=== PATIENT | male | born 1970 | race Caucasian/White ===

== ENCOUNTER 2020-04-28 05:39 | Day surgery (SDC) | payer OTHER, SELFPAY ==
[2020-04-24 11:03] VITALS: BMI 26.9
[2020-04-28 06:05] VITALS: BP 116/78; PULSE 46; RESP 18; TEMP 36.2; O2SAT 99
[2020-04-28] MEDS: sodium chloride 0.9% 1,000 ML 30 ML IV (06:12)
--- NOTE | 2020-04-28 06:46 | P.ANESASSM_ITS ---
Pre-Anesthetic Assessment Pre-Anesthetic Assessment: Height/Weight: Height 1.68 m Weight 75.75 kg Temp Pulse Resp BP Pulse Ox 97.2 F L 46 L 18 116/78 99 04/28/20 06:05 04/28/20 06:05 04/28/20 06:05 04/28/20 06:05 04/28/20 06:05 Preop Diagnosis: history of throat cancer Proposed Procedure: Operation Date: 04/28/20 07:00 Proposed Procedures p EGD with poss biopsy 19993 Z80.0(Not Applicable) - Jewel Aguilar MD Familial anesthetic complications: denies Was Beta Dean taken within 24 hours: N/A Last intake: Intake Last Liquid Date 04/27/20 Last Liquid Time 21:00 Last Solid Date 04/27/20 Last Solid Time 20:00 Last Intake: 00:00 Social: Social History: No alcohol and No tobacco Exam: Pre-Anes Outpt Exam: alert, oriented x 3 and clear to auscultation bilaterally Airway: Submandibular: WNL Cervical ROM: WNL MP: 2 Dentition: Pa rtials (upper out ) Pulmonary: Pulmonary: Sleep apnea CV/HEM: CV/HEM: Arrythmia (SB) : : None reported Hepatic: Hepatic: None reported GI: GI: None reported Metabolic: Metabolic: None reported Musc/skel: Musc/skel: None reported Neuropsych: Neuropsych: Anxiety and Depression Anesthetic Plan: ASA status: 2 Anesthesia: Anesthesia Evaluation and MAC Meds/Allergies Current Medications: Current Medications Generic Name Dose Route Start Last Admin Trade Name Freq PRN Reason Stop Dose Admin Sodium Chloride 1,000 mls @ 30 ml s/hr 04/28/20 06:00 04/28/20 06:12 Sodium Chloride 0.9% IV 30 mls/hr .Q24H KENIA Administration PFSH Anesthesia PFSH: Medical History Migraines Rotator cuff tear arthropathy of right shoulder Seizures Surgical History H/O circumcision H/O hand surgery right Family History Mother Cancer throat Sister Cancer throat Denies family history of Diabetes CAD (coronary artery disease) Anesthesia complication Bleeding disorder Social History Smoking and tobacco status: never smoked Alcohol intake: never Household members: spouse Marital status: Current occupational status: employed History of recent travel: Yes ([place]) Out of state: No Data Anesthesia Cardiac Studies: No Data to Display
--- NOTE | 2020-04-28 07:04 | W.PM.OPSUD ---
Surgery/Procedure H&P Update DATE OF PROCEDURE: April 28, 2020 DATE H&P PERFORMED: 04/10/20 H&P UPDATE INFORMATION: I have reviewed H&P completed within last 30 days, I have examined patient prior to procedure and No changes to prior documentation PREOP DIAGNOSIS: history of throat cancer PLANNED PROCEDURE: Operation Date: 04/28/20 07:00 Proposed Procedures p EGD with poss biopsy [id number] Z80.0(Not Applicable) - Jewel Aguilar MD
[2020-04-28 07:12] VITALS: BP 97/61; PULSE 41; RESP 16; TEMP 36.2; O2SAT 98
[2020-04-28 07:19] VITALS: BP 93/60; PULSE 50; RESP 18; O2SAT 98
--- NOTE | 2020-04-28 08:06 | ANE.PACU2 ---
Inpatient post-anesthesia follow up: Airway intact: Yes Vital signs: Temperature 97.1 F Pulse Rate 50 Respiratory Rate 18 Blood Pressure 93/60 Pulse Oximetry 98 Oxygen Delivery Me thod Room Air Oxygen Flow Rate 3 Fraction of Inspir ed Oxygen Hydration adequate: Yes Nausea and vomiting: No Pain level: Other (0) Mental status: Baseline
== END 2020-04-28 07:25 | disposition home or self-care (01) ==
PROVIDERS: PCP Nurse Practitioner Family; Visit Provider Surgery
PROC: 0DJ08ZZ Inspection of Upper Intestinal Tract, Via Natural or Artificial Opening Endoscopic (ICD-10-PCS; CPT 43235; principal; 2020-04-28 07:00)
DX: Z80.0 Family history of malignant neoplasm of digestive organs (principal); K20.9 Esophagitis, unspecified; K29.70 Gastritis, unspecified, without bleeding; G47.30 Sleep apnea, unspecified; Z87.891 Personal history of nicotine dependence
CPT/HCPCS: 12345; 43235; J2704; J3010; J3490; J7030

== ENCOUNTER → 2020-11-07 10:32 | Outpatient (BNVA) | payer OTHER, SELFPAY | PROVIDERS: PCP Nurse Practitioner Family; Visit Provider Nurse Practitioner Family | DX: Z20.828 Contact with and (suspected) exposure to other viral communicable diseases (principal) | CPT/HCPCS: 87635 ==

== ENCOUNTER → 2021-04-20 11:04 | Outpatient (BNVA) | payer OTHER, SELFPAY | PROVIDERS: PCP Nurse Practitioner Family; Visit Provider Nurse Practitioner Family | DX: Z20.822 Contact with and (suspected) exposure to COVID-19 (principal) | CPT/HCPCS: 87635 ==

== ENCOUNTER → 2021-11-17 08:50 | Outpatient (BNVA) | payer OTHER, SELFPAY | PROVIDERS: PCP Nurse Practitioner Family; Visit Provider Nurse Practitioner | DX: Z00.00 Encounter for general adult medical examination without abnormal findings (principal); Z12.5 Encounter for screening for malignant neoplasm of prostate | CPT/HCPCS: 80053; 80061; 84443; 85025; G0103 ==

== ENCOUNTER → 2022-06-13 12:17 | Outpatient (BNVA) | payer OTHER, SELFPAY | PROVIDERS: PCP Nurse Practitioner; Visit Provider Emergency Medicine | DX: J06.9 Acute upper respiratory infection, unspecified (principal); U07.1 COVID-19 | CPT/HCPCS: 87426 ==

== ENCOUNTER 2022-08-02 10:58 | Outpatient (CLI) | payer OTHER, SELFPAY ==
--- NOTE | 2022-08-02 11:05 | XR_ITS ---
WS: [id number] Exam: XR cervical spine 3V* [id number] Date/Time of Exam: 08/02/2022 11:09 AM Reason For Exam: M54.2 - Cervicalgia No fracture or dislocation. Disc spaces are preserved. Posterior elements are intact. There is straig htening with loss of the cervical lordotic curve. Paraspinal soft tissues are unremarkable. The odont oid is intact. XR/XR cervical spine 3V* [id number] IMPRESSION: 1. Straightening of the C-spine otherwise unremarkable exam.
== END 2022-08-02 10:59 | disposition home or self-care (01) ==
LOC: RAD 11:00
PROVIDERS: PCP Nurse Practitioner; Visit Provider Nurse Practitioner
DX: M54.2 Cervicalgia (principal)
CPT/HCPCS: 72040

== ENCOUNTER → 2023-05-11 18:40 | Outpatient (BNVA) | payer SELFPAY | PROVIDERS: PCP Nurse Practitioner; Visit Provider Nurse Practitioner | DX: R05.9 Cough, unspecified (principal) | CPT/HCPCS: 87426 ==

== ENCOUNTER 2023-12-13 08:23 | Day surgery (SDC) | payer OTHER, SELFPAY ==
[2023-12-13 08:47] VITALS: BP 124/67; PULSE 49; RESP 18; TEMP 36.7; O2SAT 98; BMI 28.0
[2023-12-13] MEDS: sodium chloride 0.9% 1,000 ML 30 ML IV (08:58)
--- NOTE | 2023-12-13 09:10 | ANES.PREANE2 ---
Pre-Anesthetic Assessment Height/Weight: Height 1.68 m Weight 78.925 kg Temp Pulse Resp BP Pulse Ox O2 Del Method 98.0 F 49 L 18 124/67 98 Room Air 12/13/23 08:47 12/13/23 08:47 12/13/23 08:47 12/13/23 08:47 12/13/23 08:47 12/13/23 08:47 Preop Diagnosis: Screening Operation Date: 12/13/23 09:30 Proposed Procedures p 26841 screen colonoscopy G0121 screen colon a risk Z12.11(Not Applicable) - Ramesh Cordova DO Familial anesthetic complications: None Was Beta Dean taken within 24 hours: N/A Was Clonidine taken within 24 hours: N/A Last intake: Intake Last Liquid Date 12/12/23 Last Liquid Time 22:00 Last Solid Date 12/11/23 Last Solid Time 21:00 Social Tobacco (Chew, not daily) and No alcohol Exam alert, oriented x 3, clear to auscultation bilaterally and regular rate & rhythm Airway Submandibular: within normal limits Cervical ROM: within normal limits Mallampati: Class III Dentition: partials History/ROS No significant history except as noted and No significant complaints Pulmonary None reported CV/HEM None reported None reported Hepatic None reported GI None reported Metabolic None reported Musc/skel None reported Neuropsych Anxiety, Headache (Migraines) and Seizure (2 years ago) Anesthetic Plan ASA status: 2 Anesthesia: Anesthesia Evaluation, General and MAC Risk of > 500 ml blood loss (7ml/kg in children): No Medications/Allergies Home Medications Medication Instructions Recorded Confirmed Last Taken Type sumatriptan succinate 100 mg 100 mg PO Q2H PRN Headache 04/10/20 12/13/23 04/25/20 History tablet (Imitrex) hydroxyzine pamoate 25 mg capsule 25 mg PO TID PRN Anxiety 11/17/21 12/13/23 Unknown History citalopram 20 mg tablet (Celexa) 20 mg PO DAILY #30 tabs 08/28/23 12/13/23 12/11/23 Rx dextroamphetamine-amphetamine ER 15 mg PO DAILY 30 days #30 caps 08/28/23 12/13/23 12/11/23 Rx 15 mg 24hr capsule,extend release (Adderall XR) Allergies Allergy/AdvReac Type Severity Reaction Status Date / Time venlafaxine [From Effexor] AdvReac ADR-Numbnes Verified 12/13/23 08:44 s Current Medications Generic Name Dose Route Start Last Admin Trade Name Cindy PRN Reason Stop Dose Admin Sodium Chloride 1,000 mls @ 30 mls/hr 12/13/23 08:45 12/13/23 08:58 Sodium Chloride 0.9% IV 12/14/23 08:44 30 mls/hr .Q24H KENIA Administration PFSH Anesthesia Medical History ADHD (attention deficit hyperactivity disorder), inattentive type Generalized anxiety disorder Psychiatric care History of anxiety Gastritis determined by endoscopy Rotator cuff tear arthropathy of right shoulder Migraines Seizures Surgical History Hx of hand surgery right H/O esophagogastroduodenoscopy (04/28/20) esophagitis and gastritis H/O circumcision H/O hand surgery right Family History Mother Cancer throat Sister Cancer throat Denies family history of Diabetes CAD (coronary artery disease) Anesthesia complication Bleeding disorder Social History Smoking and tobacco/nicotine status: never used tobacco/nicotine Second hand smoke exposure: No Alcohol intake: never Substance/Drug Use: never Adopted: No Caregiver/support person: No Lives independently: Yes Household members: spouse Housing: House Marital status: Current occupational status: employed Data Anesthesia Cardiac Studies: No Data to Display
--- NOTE | 2023-12-13 09:20 | PM.HP ---
Providers/Chief Complaint Primary Care Provider: Salma Izquierdo DO Chief Complaint: Z12.11 History of Present Illness Frank Mora is a 53 year old male Review of Systems General: Reports: 10 or more systems reviewed and unremarkable except in HPI and below Medications/Allergies Home Medications Medication Instructions Recorded Confirmed Last Taken Type sumatriptan succinate 100 mg 100 mg PO Q2H PRN Headache 04/10/20 12/13/23 04/25/20 History tablet (Imitrex) hydroxyzine pamoate 25 mg capsule 25 mg PO TID PRN Anxiety 11/17/21 12/13/23 Unknown History citalopram 20 mg tablet (Celexa) 20 mg PO DAILY #30 tabs 08/28/23 12/13/23 12/11/23 Rx dextroamphetamine-amphetamine ER 15 mg PO DAILY 30 days #30 caps 08/28/23 12/13/23 12/11/23 Rx 15 mg 24hr capsule,extend release (Adderall XR) Allergies Allergy/AdvReac Type Severity Reaction Status Date / Time venlafaxine [From Effexor] AdvReac ADR-Numbnes Verified 12/13/23 08:44 s PFSH Acute PFSH: Medical History ADHD (attention deficit hyperactivity disorder), inattentive type Generalized anxiety disorder Psychiatric care History of anxiety Gastritis determined by endoscopy Rotator cuff tear arthropathy of right shoulder Migraines Seizures Surgical History Hx of hand surgery right H/O esophagogastroduodenoscopy (04/28/20) esophagitis and gastritis H/O circumcision H/O hand surgery right Family History Mother Cancer throat Sister Cancer throat Denies family history of Diabetes CAD (coronary artery disease) Anesthesia complication Bleeding disorder Social History Smoking and tobacco/nicotine status: never used tobacco/nicotine Second hand smoke exposure: No Alcohol intake: never Substance/Drug Use: never Adopted: No Caregiver/support person: No Lives independently: Yes Household members: spouse Housing: House Marital status: Current occupational status: employed Vitals/I&O/Wt Last Vital Signs Temp 98.0 F 12/13/23 08:47 Pulse 49 L 12/13/23 08:47 Resp 18 12/13/23 08:47 BP 124/67 12/13/23 08:47 Pulse Ox 98 12/13/23 08:47 O2 Del Method Room Air 12/13/23 08:47 Weight last 48 hrs Weight 174 lb A&P Assessment and plan (1) Colon cancer screening: Plan Screening colonoscopy Attestations Medical Necessity Statement*: Home Coding Level of Care Code Acute Code for Chg Fwd Diagnoses Colon cancer screening Z12.11
[2023-12-13 10:20] VITALS: BP 97/68; PULSE 79; RESP 14; TEMP 36.4; O2SAT 94
[2023-12-13 10:30] VITALS: BP 113/79; PULSE 67; RESP 16; O2SAT 94
[2023-12-13 10:40] VITALS: BP 111/91; PULSE 69; RESP 18; O2SAT 94
--- NOTE | 2023-12-13 10:55 | ANE.PACU2 ---
Inpatient post-anesthesia follow up: Airway intact: Yes Vital signs: Temperature 97.5 F Pulse Rate 69 Respiratory Rate 18 Blood Pressure 111/91 Pulse Oximetry 94 Oxygen Delivery Me thod Room Air Oxygen Flow Rate Fraction of Inspir ed Oxygen Hydration adequate: Yes Nausea and vomiting: No Pain level: 1 Mental status: Baseline
== END 2023-12-13 10:57 | disposition home or self-care (01) ==
PROVIDERS: PCP Family Medicine; Visit Provider Surgery
PROC: 0DJD8ZZ Inspection of Lower Intestinal Tract, Via Natural or Artificial Opening Endoscopic (ICD-10-PCS; CPT 45378; principal; 2023-12-13 09:30)
DX: Z12.11 Encounter for screening for malignant neoplasm of colon (principal); K64.8 Other hemorrhoids; F17.220 Nicotine dependence, chewing tobacco, uncomplicated
CPT/HCPCS: 45378; J2704; J3490; J7030

== ENCOUNTER 2023-12-26 15:35 | Outpatient (CLI) | payer OTHER, SELFPAY ==
--- NOTE | 2023-12-26 16:08 | XRR_ITS ---
PROCEDURE INFORMATION: Exam: XR Left Hand Exam date and time: 12/26/2023 4:10 PM Age: 53 years old Clinical indication: Pain; Finger(s); Left; Additional info: Left thumb pain TECHNIQUE: Imaging protocol: Radiologic exam of the left hand. Views: 3 or more views. COMPARISON: No relevant prior studies available. FINDINGS: Bones/joints: Amputation changes of the distal phalanx of the 3rd digit. Residual osseous structures are intact. Negative for fracture. 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 Soft tissues: Amputation changes of the distal 3rd digit. XR/XR hand LT min 3V* [id number] IMPRESSION: No acute findings. 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
== END 2023-12-26 15:36 | disposition home or self-care (01) ==
PROVIDERS: PCP Family Medicine; Visit Provider Nurse Practitioner Family
DX: M19.042 Primary osteoarthritis, left hand (principal); M79.645 Pain in left finger(s)
CPT/HCPCS: 73130

== ENCOUNTER 2024-06-04 11:54 | Outpatient (CLI) | payer OTHER, SELFPAY ==
--- NOTE | 2024-06-04 11:59 | XRR_ITS ---
PROCEDURE INFORMATION: Exam: XR Right Shoulder Exam date and time: 06/04/2024 12:30 PM Age: 53 years old Clinical indication: Right; Patient HX: Popping in the RT shoulder for years. Weakness and pain began in the last few weeks. ; Additional info: Right shoulder pain TECHNIQUE: Imaging protocol: Radiologic exam of the right shoulder. Views: 2 or more views. COMPARISON: CR XR shoulder RT min 2V* [id number] 11/25/2018 6:04 PM FINDINGS: Bones/joints: Normal. Mild acromioclavicular and glenohumeral spurring. Soft tissues: Normal. XR/XR shoulder RT min 2V* [id number] IMPRESSION: No acute findings.
== END 2024-06-04 11:55 | disposition home or self-care (01) ==
LOC: RAD 11:55
PROVIDERS: PCP Family Medicine; Visit Provider Nurse Practitioner Family
DX: M25.511 Pain in right shoulder (principal)
CPT/HCPCS: 73030

== ENCOUNTER 2024-07-03 10:05 | Day surgery (SDC) | payer OTHER, SELFPAY ==
[2024-07-03 10:28] VITALS: BP 127/74; PULSE 43; RESP 18; TEMP 36.4; O2SAT 98; BMI 27.7
[2024-07-03] MEDS: sodium chloride 0.9% 1,000 ML 30 ML IV (10:38)
--- NOTE | 2024-07-03 11:18 | ANES.PREANE2 ---
Pre-Anesthetic Assessment Height/Weight: Height 1.68 m Weight 78.018 kg Temp Pulse Resp BP Pulse Ox O2 Del Method 97.5 F L 43 L 18 127/74 98 Room Air 07/03/24 10:28 07/03/24 10:28 07/03/24 10:28 07/03/24 10:28 07/03/24 10:28 07/03/24 10:28 Preop Diagnosis: Dysphagia, GERD Operation Date: 07/03/24 11:30 Proposed Procedures p EGD Dilation - 96705 , r13.10, k21.9(Not Applicable) - Ramesh Cordova DO Familial anesthetic complications: none Was Beta Dean taken within 24 hours: N/A Was Clonidine taken within 24 hours: N/A Last intake: Intake Last Liquid Date 07/02/24 Last Liquid Time 20:00 Last Solid Date 07/02/24 Last Solid Time 20:00 Social Tobacco (chewing tobacco 199907/02/24) Exam alert, oriented x 3 and clear to auscultation bilaterally Airway Submandibular: within normal limits Cervical ROM: within normal limits Mallampati: Class II Comments: Comments: missing teeth. Pulmonary None reported CV/HEM None reported None reported Hepatic None reported GI Gastroesophageal Reflux Disease dysphagia Metabolic None reported Musc/skel None reported Neuropsych Anxiety and Seizure (2 weeks ago reports partial seizure supposed to take Topamax but refuses per patient.) Anesthetic Plan ASA status: 2 Anesthesia: MAC Medications/Allergies Home Medications Medication Instructions Recorded Confirmed Last Taken Type sumatriptan succinate 100 mg 100 mg PO Q2H PRN Headache 04/10/20 07/03/24 04/25/20 History tablet (Imitrex) cetirizine 10 mg tablet 10 mg PO DAILY PRN allergies 05/27/24 07/01/24 06/26/24 History pantoprazole 40 mg tablet,delayed 40 mg PO BID 6 weeks #84 tabs 05/27/24 07/03/24 Unknown Rx release (Protonix) dextroamphetamine-amphetamine ER 15 mg PO DAILY 30 days #30 caps 06/17/24 07/03/24 07/02/24 Rx 15 mg 24hr capsule,extend release (Adderall XR) citalopram 40 mg tablet (Celexa) 40 mg PO DAILY #30 tabs 06/18/24 07/03/24 07/02/24 Rx Allergies Allergy/AdvReac Type Severity Reaction Status Date / Time venlafaxine [From Effexor] AdvReac ADR-Numbnes Verified 07/01/24 17:06 s Current Medications Generic Name Dose Route Start Last Admin Trade Name Cindy PRN Reason Stop Dose Admin Sodium Chloride 1,000 mls @ 30 mls/hr 07/03/24 10:15 07/03/24 10:38 Sodium Chloride 0.9% IV 07/04/24 10:14 30 mls/hr .Q24H KENIA Administration PFSH Anesthesia Medical History Major depressive disorder, single episode PTSD (post-traumatic stress disorder) ADHD (attention deficit hyperactivity disorder), inattentive type Generalized anxiety disorder Psychiatric care History of anxiety Gastritis determined by endoscopy Rotator cuff tear arthropathy of right shoulder Migraines Seizures Surgical History Hx of hand surgery right H/O esophagogastroduodenoscopy (04/28/20) esophagitis and gastritis H/O circumcision H/O hand surgery right Family History Mother Cancer throat Sister Cancer throat Denies family history of Diabetes CAD (coronary artery disease) Anesthesia complication Bleeding disorder Social History Smoking and tobacco/nicotine status: never used tobacco/nicotine Second hand smoke exposure: No Alcohol intake: never Substance/Drug Use: never Adopted: No Caregiver/support person: No Lives independently: Yes Household members: spouse Housing: House Marital status: Current occupational status: employed Data Anesthesia Cardiac Studies: Holter Monitor 03/05/24
--- NOTE | 2024-07-03 11:23 | PM.HP ---
Providers/Chief Complaint Primary Care Provider: Salma Izquierdo DO Chief Complaint: R13.10 History of Present Illness Frank Mora is a 53 year old male Review of Systems General: Reports: 10 or more systems reviewed and unremarkable except in HPI and below Medications/Allergies Home Medications Medication Instructions Recorded Confirmed Last Taken Type sumatriptan succinate 100 mg 100 mg PO Q2H PRN Headache 04/10/20 07/03/24 04/25/20 History tablet (Imitrex) cetirizine 10 mg tablet 10 mg PO DAILY PRN allergies 05/27/24 07/01/24 06/26/24 History pantoprazole 40 mg tablet,delayed 40 mg PO BID 6 weeks #84 tabs 05/27/24 07/03/24 Unknown Rx release (Protonix) dextroamphetamine-amphetamine ER 15 mg PO DAILY 30 days #30 caps 06/17/24 07/03/24 07/02/24 Rx 15 mg 24hr capsule,extend release (Adderall XR) citalopram 40 mg tablet (Celexa) 40 mg PO DAILY #30 tabs 06/18/24 07/03/24 07/02/24 Rx Allergies Allergy/AdvReac Type Severity Reaction Status Date / Time venlafaxine [From Effexor] AdvReac ADR-Numbnes Verified 07/01/24 17:06 s PFSH Acute PFSH: Medical History Major depressive disorder, single episode PTSD (post-traumatic stress disorder) ADHD (attention deficit hyperactivity disorder), inattentive type Generalized anxiety disorder Psychiatric care History of anxiety Gastritis determined by endoscopy Rotator cuff tear arthropathy of right shoulder Migraines Seizures Surgical History Hx of hand surgery right H/O esophagogastroduodenoscopy (04/28/20) esophagitis and gastritis H/O circumcision H/O hand surgery right Family History Mother Cancer throat Sister Cancer throat Denies family history of Diabetes CAD (coronary artery disease) Anesthesia complication Bleeding disorder Social History Smoking and tobacco/nicotine status: never used tobacco/nicotine Second hand smoke exposure: No Alcohol intake: never Substance/Drug Use: never Adopted: No Caregiver/support person: No Lives independently: Yes Household members: spouse Housing: House Marital status: Current occupational status: employed Vitals/I&O/Wt Last Vital Signs Temp 97.5 F L 07/03/24 10:28 Pulse 43 L 07/03/24 10:28 Resp 18 07/03/24 10:28 BP 127/74 07/03/24 10:28 Pulse Ox 98 07/03/24 10:28 O2 Del Method Room Air 07/03/24 10:28 Weight last 48 hrs Weight 172 lb A&P Assessment and plan (1) Dysphagia: (2) GERD (gastroesophageal reflux disease): Plan EGD with possible balloon dilation Attestations Medical Necessity Statement*: Home Coding Level of Care Code Acute Code for Chg Fwd Diagnoses Dysphagia R13.10 GERD (gastroesophageal reflux disease) K21.9
[2024-07-03 11:43] VITALS: BP 104/71; PULSE 62; RESP 18; TEMP 36.4; O2SAT 97
[2024-07-03 12:15] VITALS: BP 121/82; PULSE 70; RESP 16; O2SAT 96
--- NOTE | 2024-07-03 13:13 | ANE.PACU2 ---
Inpatient post-anesthesia follow up: Airway intact: Yes Vital signs: Temperature 97.6 F Pulse Rate 70 Respiratory Rate 16 Blood Pressure 121/82 Pulse Oximetry 96 Oxygen Delivery Me thod Room Air Oxygen Flow Rate Fraction of Inspir ed Oxygen Hydration adequate: Yes Nausea and vomiting: No Pain level: 1 Mental status: Baseline
== END 2024-07-03 13:13 | disposition home or self-care (01) ==
PROVIDERS: PCP Family Medicine; Visit Provider Surgery
DX: R13.10 Dysphagia, unspecified (principal); K29.50 Unspecified chronic gastritis without bleeding; K21.00 Gastro-esophageal reflux disease with esophagitis, without bleeding; F17.220 Nicotine dependence, chewing tobacco, uncomplicated; F41.1 Generalized anxiety disorder; K44.9 Diaphragmatic hernia without obstruction or gangrene
CPT/HCPCS: 43239; 88305; 88342; J2250; J2704; J3490; J7030

== ENCOUNTER 2025-06-26 10:33 | Outpatient (CLI) | payer BC, SELFPAY ==
--- NOTE | 2025-06-26 10:40 | XRR_ITS ---
PROCEDURE INFORMATION: Exam: XR Left Hand Exam date and time: 06/26/2025 10:46 AM Age: 54 years old Clinical indication: Left; Bilateral hand pain at the base of thumb x few months. ; Additional info: Left hand pain TECHNIQUE: Imaging protocol: Radiologic exam of the left hand. Views: 3 or more views. 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 There are no there is no demonstration of acute fracture or dislocation. There are no destructive bony changes present. There is sclerosis and slight narrowing 1st carpometacarpal joint degenerative related Soft tissues: No soft tissue foreign body seen XR/XR hand LT min 3V* [id number] IMPRESSION: Findings degenerative changes 1st carpometacarpal joint no acute fracture or dislocation.
--- NOTE | 2025-06-26 10:41 | XRR_ITS ---
PROCEDURE INFORMATION: Exam: XR Right Hand Exam date and time: 06/26/2025 10:46 AM Age: 54 years old Clinical indication: Right; Prior surgery; Surgery date: 6+ months; Surgery type: Wrist fusion; Bilateral hand pain at the base of thumb x few months. ; Additional info: Right hand pain, HX of surgery TECHNIQUE: Imaging protocol: Radiologic exam of the right hand. Views: 3 or more views. COMPARISON: No relevant prior studies available. FINDINGS: Bones/joints: Patient is status post prior surgery at the base of the 1st metacarpal surgical pins are in position. There is no acute fracture or dislocation. There is narrowing of the 3rd metacarpophalangeal joint space degenerative related Soft tissues: Normal. XR/XR hand RT min 3V* [id number] IMPRESSION: No fracture or dislocation seen Degenerative changes as noted
== END 2025-06-26 10:34 | disposition home or self-care (01) ==
LOC: RAD 10:35
PROVIDERS: PCP Family Medicine; Visit Provider Nurse Practitioner Family
DX: M18.12 Unilateral primary osteoarthritis of first carpometacarpal joint, left hand (principal); M19.041 Primary osteoarthritis, right hand
CPT/HCPCS: 73130